=== PATIENT | male | born 1965 | race Caucasian/White ===

== ENCOUNTER 2024-10-05 23:15 | Emergency (ER) | payer BC, SELFPAY ==
[2024-10-05 23:21] VITALS: PULSE 66; TEMP 36.6; O2SAT 96; BMI 30.8
[2024-10-05 23:31] VITALS: BP 158/91
--- NOTE | 2024-10-05 23:32 | ED.GENADUL1 ---
HPI HPI - General Adult General Chief complaint: Extremity Injury, Lower Stated complaint: LOWER EXTREMITY PAIN Time Seen by Provider: 10/05/24 23:27 Source: patient Mode of arrival: ambulance History of Present Illness HPI narrative: 59-year-old male presents to the emergency department for pain in his right foot and ankle area. About 2:00 in the afternoon, 9-1/2 hours ago, working and they have the piece of paneling fell and hit him on the very proximal anterior foot region. He had work boots on. He had a little bit of pain initially and it lasted about 2 minutes and then it went away and he was able to continue working. Many hours later, this evening, the pain came on when he went to stand up. He had already taken his boots off hours earlier and had been up walking around a great deal. There was no subsequent trauma from the initial injury. Related Data Previous Rx's ?Medication ?Instructions ?Recorded acetaminophen 300 mg-codeine 30 mg 1 tab PO Q6H PRN pain 5 days #20 10/06/24 tablet tabs ibuprofen 800 mg tablet 800 mg PO Q8H PRN pain #20 tabs 10/06/24 Allergies Allergy/AdvReac Type Severity Reaction Status Date / Time No Known Drug Allergies Allergy Verified 10/05/24 23:24 Opioid HPI Opioid Management Most Recent Opioid Data: No Data to Display Review of Systems ROS Narrative A ten point review of systems is negative except as noted above. Exam Narrative Exam Narrative: Nurses note and vital signs reviewed and patient is not hypoxic. General: The patient appears well and in no apparent distress. Skin: Warm, dry, no pallor noted. There is no rash noted. Head: Normocephalic, atraumatic Eye: Normal conjunctiva, no drainage Ears, Nose, Mouth, and Throat: oral mucosa is moist. Nares patent. Cardiovascular: Regular Rate and Rhythm Respiratory: Patient is in no distress, no accessory muscle use Back: non-tender GI: Soft and nontender Musculoskeletal: His right foot and ankle are examined. There is no erythema bruise or abrasion. He seems to have tenderness on the anterior surface of the ankle extending onto the proximal area of the foot. Neurological: A&O, normal speech Psychiatric: Cooperative Constitutional Vital Signs, click to edit/add: Last Vital Signs Temp 97.8 F 10/05/24 23:21 Pulse 66 10/05/24 23:21 Resp 20 10/05/24 23:21 BP 158/91 H 10/05/24 23:31 Pulse Ox 96 10/05/24 23:21 O2 Del Method Room Air 10/05/24 23:21 Course Vital Signs Vital signs: Vital Signs Temperature 97.8 F 10/05/24 23:21 Pulse Rate 66 10/05/24 23:21 Respiratory Rate 20 10/05/24 23:21 Pulse Oximetry 96 10/05/24 23:21 Oxygen Delivery Method Room Air 10/05/24 23:21 Temperature 97.8 F 10/05/24 23:21 Pulse Rate 66 10/05/24 23:21 Respiratory Rate 20 10/05/24 23:21 Blood Pressure 158/91 H 10/05/24 23:31 Pulse Oximetry 96 10/05/24 23:21 Oxygen Delivery Method Room Air 10/05/24 23:21 Medical Decision Making MDM Narrative Medical decision making narrative: X-rays on my interpretation showed no acute findings. On the lateral view there is a calcified area adjacent to the bone but this appears to be well-rounded and not acute. Segundo wrap applied, application checked by me and found to be appropriate, he is neurovascular intact and he was placed on crutches. He was prescribed Tylenol 3 and ibuprofen and given doses of each of these here. Treatment diagnosis and follow-up were discussed with the patient. Differential Diagnosis Differential Diagnosis: Contusion, fracture Imaging Data Right foot, right ankle x-ray: My impression: No acute findings Discharge Plan Discharge Chief Complaint: Extremity Injury, Lower Clinical Impression: Contusion of foot, right Patient Disposition: Home, Self-Care Time of Disposition Decision: 01:48 Condition: Good Mode of Transportation: Private Vehicle Prescriptions / Home Meds: New acetaminophen-codeine 300-30 mg tablet 1 tab PO Q6H PRN (Reason: pain) 5 Days Qty: 20 0RF ibuprofen 800 mg tablet 800 mg PO Q8H PRN (Reason: pain) Qty: 20 0RF Print Language: Japanese Instructions: Foot Contusion (ED) Referrals: ALFRED GORDON DO [Primary Care Provider] - 1 week Wilfredo Acevedo DPM [Physician] - 1 week
--- NOTE | 2024-10-06 01:05 | PC.NURSE ---
Patient alert and oriented. skin pwd. states he toni around 2pm when a piece of paneling fell on the top of his right foot. patient states that he was ambulatory after. did not think anything of it. finished the work day, went home, cooked dinner, took a shower and then when he sat down after a while he started to experience extreme pain to right foot states he cannot walk or flex foot anymore
[2024-10-06] MEDS: IBUPROFEN 400 MG TABLET 800 MG PO (02:06)
== END 2024-10-06 02:26 | disposition home or self-care (01) ==
PROVIDERS: Emergency Provider Emergency Medicine; PCP Family Medicine
DX: S90.31XA Contusion of right foot, initial encounter (principal); W22.8XXA Striking against or struck by other objects, initial encounter
CPT/HCPCS: 73610; 73630; 99283